=== PATIENT | male | born 1955 | race Caucasian/White ===

== ENCOUNTER 2016-12-06 20:02 | Emergency (ER) | payer OTHER ==
[2016-12-06 20:19] VITALS: BP 150/92; PULSE 74; RESP 14; TEMP 98.4; O2SAT 93
[2016-12-06] MEDS ORDERED: LIDOCAINE 2% JELLY 5 ML TUBE TP ONE (21:16)
[2016-12-06] MEDS ORDERED: LIDOCAINE 2% VISCOUS 15 ML UDCUP ONE (21:20)
--- NOTE | 2016-12-06 21:57 | UCPHY ---
H & P Time Seen by Provider: 12/06/16 20:58 Patient Type: New HPI/ROS: This patient has a foreign body sensation is right ear. He explains he was under an old car working at when he abruptly felt like there was a foreign body present in the right external canal. He reports moderate discomfort associated with this. The incident occurred shortly prior to arrival he is accompanied by friends tonight. ROS: No bleeding from the ear. No inner ear pain. No other associated symptoms. 5 point ROS is otherwise negative. Past Medical/Surgical History: Otherwise healthy Smoking Status: Never smoked Physical Exam: Physical Exam Vital signs are normal. General: No acute distress HEENT: Atraumatic. Ears: Left external canal and TM are clear right external canal: Foreign body present that appears to be a large grass seed wedge the external canal no bleeding. Eyes: Pupils equal and react to light. Extraocular motions are intact. Cardiac: Brisk capillary refill is intact throughout. Skin: No rash or pallor. Neuro: Alert and oriented x3 with no sensorimotor deficits appreciated. Constitutional: Initial Vital Signs Temperature (C) 36.9 C 12/06/16 20:14 Heart Rate 74 12/06/16 20:14 Respiratory Rate 14 12/06/16 20:14 Blood Pressure 150/92 H 12/06/16 20:14 O2 Sat (%) 93 12/06/16 20:14 O2 Delivery Mode Room Air Allergies/Adverse Reactions: Penicillins Allergy (Verified 12/06/16 20:13) Home Medications: Medication Instructions Recorded NK [No Known Home Meds] 12/06/16 Medical Decision Making Procedures: Foreign body removal from right ear: After verbal consent, used topical lidocaine anesthesia with good relief and then alligator forceps with removal of the foreign body without difficulty. There is a approximately 2 cm long grass seed removed intact. Patient tolerated this well. There were no complications. On repeat examination of the right ear there is no external canal bleeding. TM appears normal - Data Points Medications Given: Discontinued Medications Lidocaine (Lidocaine 2% Jelly) 1 jessica TP EDNOW ONE Stop: 12/06/16 21:17 Last Admin: 12/06/16 21:41 Dose: 1 jessica Departure - Departure Disposition: Home, Routine, Self-Care Clinical Impression: Foreign body of ear, right Condition: Good Instructions: Earache (ED) Additional Instructions: Diagnosis: Foreign body in ear-removed Plan: Ibuprofen Tylenol for discomfort if needed Return if he develops fever, discharge or other concerns for infection. Referrals: NONE *PRIMARY CARE P,. [Primary Care Provider] - As per Instructions - PQRS PQRS Measurement: NA
== END 2016-12-06 22:11 | disposition home or self-care (01) ==
LOC: CED 20:02
PROC: 09C37ZZ Extirpation of Matter from Right External Auditory Canal, Via Natural or Artificial Opening (ICD-10-PCS; principal; 2016-12-06)
DX: S00.451A Superficial foreign body of right ear, initial encounter (principal)
CPT/HCPCS: 69200-PO; 99203-PO; G0463-PO